=== PATIENT | male | born 1990 | race Caucasian/White ===

== ENCOUNTER 2019-07-19 14:13 | Emergency (ER) | payer OTHER ==
[~2019-07-19] VITALS: Ht 185.4 cm; Wt 83.5 kg
[2019-07-19] MEDS ORDERED: IBUPROFEN 800800 M1 PO (15:37)
[2019-07-19] MEDS ORDERED: AMOXICILLIN500 M1 PO (15:37)
[2019-07-19] MEDS ORDERED: NORCO 5-325 TA1 EAC1 PO (15:37)
[2019-07-19 15:56] VITALS: BP 142/79
== END 2019-07-19 16:30 | disposition home or self-care (01) ==
LOC: ER 14:13
DX: K02.9 Dental caries, unspecified (principal)